=== PATIENT | female | born 1970 | race Native Hawaiian/Other Pacific Islander ===

== ENCOUNTER 2019-10-12 12:29 | Outpatient (CLI) | payer OTHER ==
[2019-10-12 13:53] LABS: PLATELET COUNT 284 K/uL (152-353)
== END 2019-10-12 19:00 | disposition home or self-care (01) ==
LOC: LAB 12:29
PROVIDERS: Physician Assistant
DX: N93.8 Other specified abnormal uterine and vaginal bleeding (principal); Z68.41 Body mass index [BMI] 40.0-44.9, adult
CPT/HCPCS: 84146; 84402; 84403; 84443; 85027

== ENCOUNTER 2020-02-14 16:44 | Outpatient (CLI) | payer OTHER | END 2020-02-14 21:07 | disposition home or self-care (01) | LOC: LAB 16:44 | PROVIDERS: ATTEND Nurse Practitioner Family | DX: B35.1 Tinea unguium (principal); Z79.899 Other long term (current) drug therapy; R53.82 Chronic fatigue, unspecified | CPT/HCPCS: 80076; 83540 ==

== ENCOUNTER 2020-08-05 17:47 | Outpatient (CLI) | payer OTHER | END 2020-08-05 19:55 | disposition home or self-care (01) | LOC: LAB 17:47 | PROVIDERS: ATTEND Nurse Practitioner Family | DX: R10.13 Epigastric pain (principal); K29.00 Acute gastritis without bleeding; R19.7 Diarrhea, unspecified | CPT/HCPCS: 87015; 87045; 87899 ==